=== PATIENT | male | born 1985 | race Two or more races ===

== ENCOUNTER 2017-09-04 23:28 | Emergency (ER) | payer SELFPAY ==
[2017-09-05] MEDS ORDERED: DOXYCYCLINE HYCLATE 100 MG TABLET PO ONE (02:25)
[2017-09-05] MEDS ORDERED: SULFAMETHOXAZOLE/TRIMETHOPRIM 800-160 MG TABLET PO ONE (02:25)
--- NOTE | 2017-09-05 02:27 | ER Document Report ---
HPI - HPI Patient complains to provider of: skin infection Pain Level: 3 Context: Patient is a 31-year-old male that comes emergency department for chief complaint of a red tender area that is starting to spread on his left foot. He denies feeling a bite, getting a cut, denies itching, denies fever or chills, denies any other symptoms. He states that it looked like a small abebe, he popped this, and then later in the day it started getting red. He states that he had a "bad abscess" that spread and required hospitalization in the past. He denies any daily medications. He does not have diabetes. He frequently wears flip-flops outside. - DERM Skin Color: Normal Past Medical History - General Information source: Patient - Social History Smoking Status: Never Smoker Frequency of alcohol use: None Drug Abuse: None Lives with: Family Family History: Reviewed & Not Pertinent Patient has suicidal ideation: No Patient has homicidal ideation: No - Medical History Medical History: Negative Renal/ Medical History: Denies: Hx Peritoneal Dialysis Past Surgical History: Reports: Hx Herniorrhaphy - Immunizations Immunizations up to date: Yes Hx Diphtheria, Pertussis, Tetanus Vaccination: Yes Vertical Provider Document - CONSTITUTIONAL General Appearance: WD/WN, No Apparent Distress - INFECTION CONTROL TRAVEL OUTSIDE OF THE [place] IN LAST 30 DAYS: No - HEENT HEENT: Atraumatic, Normal ENT Exam, Normocephalic - NECK Neck: Normal Inspection - RESPIRATORY Respiratory: Breath Sounds Normal, No Respiratory Distress O2 Sat by Pulse Oximetry: 99 - CARDIOVASCULAR Cardiovascular: Regular Rate, Regular Rhythm - GI/ABDOMEN Gastrointestinal: Abdomen Soft, Abdomen Non-Tender - MUSCULOSKELETAL/EXTREMETIES Musculoskeletal/Extremeties: MAEW, FROM, Tender - There is a semicircular area of erythema over the dorsum of the left foot, no induration, fluctuance, small amount of clear drainage from a tiny opening over the top when pressed on, normal capillary refill and sensation, normal foot exam otherwise Course - Re-evaluation Re-evalutation: There is a flat area over the left dorsum with surrounding erythema, tiny opening with tiny amount of clear fluid expressed, no induration or fluctuance. Appears to be cellulitis. Patient is very concerned about this because of his history of admission for skin infection, patient will have double coverage because of the cellulitis after discussion. Discussed return precautions in detail, patient states he will return if he worsens in any way. - Vital Signs Vital signs: Temp Pulse Resp BP Pulse Ox 98.8 F 70 18 139/76 H 99 09/05/17 00:59 09/05/17 00:59 09/05/17 00:59 09/05/17 00:59 09/05/17 00:59 Discharge - Discharge Clinical Impression: Skin infection Cellulitis Qualifiers: Site of cellulitis: unspecified site Qualified Code(s): L03.90 - Cellulitis, unspecified Condition: Stable Disposition: HOME, SELF-CARE Additional Instructions: Examination is consistent with cellulitis, no evidence of abscess or other abnormality on examination. Recommendation is to take the antibiotics as prescribed to completion, keep the area clean, watch for any concerning symptoms including spreading redness, hardening, swelling, or if you develop a fever. Return to the emergency department for any concerning symptoms. Prescriptions: Doxycycline Hyclate 100 mg PO BID #14 capsule Sulfamethoxazole/Trimethoprim [Bactrim Ds Tablet] 1 each PO BID #14 tablet Forms: Return to Work
[2017-09-05 02:56] VITALS: BP 124/81
== END 2017-09-05 02:52 | disposition home or self-care (01) ==
LOC: ER 23:28
DX: L03.90 Cellulitis, unspecified (principal)
CPT/HCPCS: 99283